=== PATIENT | male | born 1930 | race Caucasian/White ===

== ENCOUNTER → 2017-02-17 | Outpatient (CLI) | payer MEDICARE, OTHER ==
[2017-02-17 15:36] LABS: CHLORIDE,CL 102 mmol/L (98-110); SODIUM,NA 137 mmol/L (136-146)
== END ==
LOC: MW.CHIM 14:51
PROVIDERS: ATTEND Internal Medicine
DX: E11.9 Type 2 diabetes mellitus without complications (principal); I10 Essential (primary) hypertension; E78.5 Hyperlipidemia, unspecified; M19.90 Unspecified osteoarthritis, unspecified site
CPT/HCPCS: 36415; 80053; 80061; 83036; 84439; 84443; 85025; 99214

== ENCOUNTER 2018-12-28 05:52 | Emergency (ER) | payer MEDICARE, OTHER ==
--- NOTE | 2018-12-28 07:30 | CR ---
Indication: Hip pain Technique: Pelvis and left hip 3 views Comparison: None Findings: Bones: Bone alignment is normal. No sign of acute fracture. Minimal irregularity is present in the medial articulating surface of the left humeral head. Joint spaces: There is left hip joint space narrowing with mild subchondral sclerosis. Minimal arthritic changes are in the right hip joint. Soft tissues: Unremarkable. Impression: Moderate left hip joint osteoarthritis and minimal right hip joint osteoarthritis. No other finding to explain pain. Dictated by Barney Vo MD @ Dec 28 2018 7:26AM Signed by Dr. Barney Vo @ Dec 28 2018 7:29AM
--- NOTE | 2018-12-28 07:53 | EDM.PDOC ---
ED HPI GENERAL MEDICAL PROBLEM - General Chief Complaint: Lower Extremity Injury/Pain Stated Complaint: LEFT HIP PAIN- POSSIBLE PINCHED NERVE Time Seen by Provider: 12/28/18 07:50 Source of Information: Reports: Patient - History of Present Illness INITIAL COMMENTS - FREE TEXT/NARRATIVE: HISTORY AND PHYSICAL: History of present illness: Patient presents with left hip pain worsened with ambulation after slipping off of his tractor 2 weeks prior, he did not fall to the ground, he slid down the steps while hanging onto the hand bar is had intermittent pain since pain is currently not present he describes pain that begins in his buttock and radiates down his leg sciatic distribution however he is essentially asymptomatic at this time he does describe a sharp pain intermittently No footdrop saddle anesthesia bowel or urine symptoms No fever nausea vomiting diarrhea constipation chest pain shortness breath headache dizziness palpitation no bowel or urine symptoms no footdrop or saddle anesthesia Review of systems: As per history of present illness and below otherwise all systems reviewed and negative. Past medical history: As per history of present illness and as reviewed below otherwise noncontributory. Surgical history: As per history of present illness and as reviewed below otherwise noncontributory. Social history: No reported history of drug or alcohol abuse. Family history: As per history of present illness and as reviewed below otherwise noncontributory. Physical exam: HEENT: Atraumatic, normocephalic, pupils reactive, negative for conjunctival pallor or scleral icterus, mucous membranes moist, throat clear, neck supple, nontender, trachea midline. Lungs: Clear to auscultation, breath sounds equal bilaterally, chest nontender. Heart: S1S2, regular, negative for clicks, rubs, or JVD. Abdomen: Soft, nondistended, nontender. Negative for masses or hepatosplenomegaly. Negative for costovertebral tenderness. Pelvis: Stable nontender. Genitourinary: Deferred. Rectal: Deferred. Extremities: Atraumatic, negative for cords or calf pain. Neurovascular unremarkable. Neuro: Awake, alert, oriented. Cranial nerves II through XII unremarkable. Cerebellum unremarkable. Motor and sensory unremarkable throughout. Exam nonfocal. Diagnostics: [Left hip with pelvis ] Therapeutics: [Tramadol 50 mg ] Impression: [] left hip pain Possibly some sciatic distribution pain Definitive disposition and diagnosis as appropriate pending reevaluation and review of above. right hip Pain Score (Numeric/FACES): 7 - Related Data Allergies Allergy/AdvReac Type Severity Reaction Status Date / Time sulfamethoxazole Allergy Abdominal Verified 12/28/18 06:17 [From Bactrim] Pain trimethoprim [From Bactrim] Allergy Abdominal Verified 12/28/18 06:17 Pain Home Meds: Home Meds Lisinopril 1 tab PO DAILY 06/26/14 [History] atorvaSTATin [Lipitor] 1 tab PO DAILY 06/26/14 [History] hydroCHLOROthiazide [Hydrochlorothiazide] 1 tab PO DAILY 06/26/14 [History] metFORMIN [Glucophage] 1 tab PO BID 06/26/14 [History] Aspirin 1 tab PO DAILY 09/22/18 [History] Metoprolol Succinate [Toprol XL] 1 tab PO DAILY 09/29/18 [History] Tamsulosin [Tamsulosin 24 Hr] 0.4 mg PO DAILY 09/29/18 [History] traMADol [Ultram] 1 tab PO ASDIRECTED PRN 09/29/18 [History] Past Medical History HEENT History: Reports: Hard of Hearing, Impaired Vision Cardiovascular History: Reports: High Cholesterol, Hypertension, [place], Pacemaker Other Cardiovascular History: Pacemaker L chest Respiratory History: Reports: None Genitourinary History: Reports: None Psychiatric History: Reports: None Endocrine/Metabolic History: Reports: Diabetes, Type II Hematologic History: Reports: None Oncologic (Cancer) History: Reports: None - Infectious Disease History Infectious Disease History: Reports: Chicken Pox - Past Surgical History GI Surgical History: Reports: Hernia Repair/Other Social & Family History - Family History Family Medical History: Noncontributory - Tobacco Use Smoking Status *Q: Never Smoker - Caffeine Use Caffeine Use: Reports: Coffee Caffeine Use Comment: 2 cups daily - Recreational Drug Use Recreational Drug Use: No Review of Systems - Review of Systems Review Of Systems: See Below ED EXAM, GENERAL - Physical Exam Exam: See Below Course - Vital Signs Last Recorded V/S: Last Vital Signs Temp 96.3 F 12/28/18 06:01 Pulse Resp 18 12/28/18 06:01 BP 146/75 H 12/28/18 06:01 Pulse Ox 96 12/28/18 06:01 Departure - Departure Time of Disposition: 07:53 Disposition: Home, Self-Care 01 Condition: Good Clinical Impression: Left hip pain - Discharge Information Referrals: Lyndon Kothari MD [Primary Care Provider] - Additional Instructions: The following information is given to patients seen in the emergency department who are being discharged to home. This information is to outline your options for follow-up care. We provide all patients seen in our emergency department with a follow-up referral. The need for follow-up, as well as the timing and circumstances, are variable depending upon the specifics of your emergency department visit. If you don't have a primary care physician on staff, we will provide you with a referral. We always advise you to contact your personal physician following an emergency department visit to inform them of the circumstance of the visit and for follow-up with them and/or the need for any referrals to a consulting specialist. The emergency department will also refer you to a specialist when appropriate. This referral assures that you have the opportunity for follow-up care with a specialist. All of these measure are taken in an effort to provide you with optimal care, which includes your follow-up. Under all circumstances we always encourage you to contact your private physician who remains a resource for coordinating your care. When calling for follow-up care, please make the office aware that this follow-up is from your recent emergency room visit. If for any reason you are refused follow-up, please contact the [facility] emergency department at and asked to speak to the emergency department charge nurse.
== END 2018-12-28 08:21 | disposition home or self-care (01) ==
LOC: MW.ED 05:52
DX: M25.552 Pain in left hip (principal); E11.9 Type 2 diabetes mellitus without complications; I10 Essential (primary) hypertension; I25.2 Old myocardial infarction; Z79.84 Long term (current) use of oral hypoglycemic drugs; Z79.899 Other long term (current) drug therapy; Z88.2 Allergy status to sulfonamides; Z88.1 Allergy status to other antibiotic agents
CPT/HCPCS: 73502-26-LT; 73502-LT; 99283-25